=== PATIENT | female | born 2000 | race Two or more races ===

== ENCOUNTER 2021-05-25 00:41 | Emergency (ER) | payer OTHER ==
[~2021-05-25] VITALS: Ht 162.6 cm; Wt 72.6 kg
[2021-05-25] MEDS ORDERED: MUPIROCIN22 GM TOP (03:16)
== END 2021-05-25 03:40 | disposition home or self-care (01) ==
LOC: ER 00:41
DX: S60.142A Contusion of left ring finger with damage to nail, initial encounter (principal); W22.8XXA Striking against or struck by other objects, initial encounter; Y93.I9 Activity, other involving external motion; Y92.413 State road as the place of occurrence of the external cause; Y99.8 Other external cause status